=== PATIENT | male | born 1970 | race Caucasian/White ===

== ENCOUNTER 2020-06-27 09:47 | Emergency (ER) | payer SELFPAY ==
[~2020-06-27] VITALS: Ht 180.3 cm; Wt 104.1 kg
[2020-06-27 09:55] VITALS: Ht 180.3 cm; Wt 104.1 kg
[2020-06-27 10:57] LABS: UA SPECIFIC GRAVITY 1.025 (1.005-1.035); microscopic required? YES; urine erythrocyte 3+ (NEGATIVE)
[2020-06-27 11:12] LABS: CALCIUM 8.8 mg/dL (8.5-10.1); CHLORIDE SERUM 101 mmol/L (98-107); CREATININE SERUM 1.1 mg/dL (0.7-1.3); GFR1 > 60 mL/min; GLUCOSE SERUM 360 mg/dL (74-106); SODIUM SERUM 134 mmol/L (136-145)
[2020-06-27 11:15] LABS: BASOPHIL % 1.3 % (0-2); PLATELET COUNT 161 x10^3mcL (130-400)
[2020-06-27 11:16] LABS: ALBUMIN 3.9 g/dL (3.4-5.0); ALKALINE PHOSPHATASE 96 U/L (46-116); ALT/SGPT 103 U/L (16-63); AST/SGOT 29 U/L (15-37); LIPASE 162 IU/L (73-393); TOTAL PROTEIN, SERUM 6.9 g/dL (6.4-8.2)
[2020-06-27 13:27] VITALS: BP 140/98
== END 2020-06-27 13:27 | disposition home or self-care (01) ==
LOC: ED 09:47
PROVIDERS: Emergency Medicine
DX: N20.1 Calculus of ureter (principal); E11.65 Type 2 diabetes mellitus with hyperglycemia
CPT/HCPCS: J1885